=== PATIENT | female | born 1950 | race Caucasian/White ===

== ENCOUNTER 2025-09-04 09:02 | Outpatient (AMB) | payer MEDICARE, SELFPAY ==
--- NOTE | 2025-09-04 09:03 | A.PHYSOV ---
Vital Signs 09/04/25 09:19 Height 4 ft 11 in Intake Visit Reasons: MRI followup Intake Note: Patient is a 74 year old female in office today for a follow up for lumbar mri results. 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 She reports having pain every day, with a current severity of 5-6 out of 10 located in her low back. She states that most of the time the pain is in her upper back, described as a tight sensation, and is exacerbated by bending or using her upper muscles. The patient reports that the back pain can radiate to her thigh, making it difficult to walk, and at times she is unable to lift her leg. She also experiences knee problems, including cracking and difficulty with bending. Her spinal MRI revealed degenerative disc disease and arthritis at multiple levels. Her pain is managed with Tylenol Arthritis, which she finds effective. She has previously tried Celebrex without finding relief and has used Flexeril, which she found helpful. She has a history of receiving therapeutic injections in her knees, wrists, elbow, and for a trigger finger, which typically provided relief for three to six months. The patient also has a lifelong history of severe migraines and avoids opioid medications. Pain Description - Onset and Timing: The patient reports having pain every day. - Severity: Pain level is currently a 5 to 6 out of 10. - Location: The pain primarily localizes to the low back and upper back, and she also feels it along her spine, thigh, and knees. - Quality: The pain is described as a tight sensation in the upper back, similar to a blood pressure cuff, and her knees experience cracking. - Exacerbating Factors: Pain is worsened by bending, using upper body muscles, and activities like grocery shopping. - Associated Symptoms/Interference: The pain interferes with her ability to walk, bend her knees, and occasionally lift her leg. - At times, she feels that even breathing hurts. Results - Imaging: - MRI of the spine reveals multilevel degenerative disc disease and arthritis. - There is no evidence of an obvious pinched nerve or spinal cord compression. [facility] Surgical History History of tonsillectomy (Unknown) H/O: hysterectomy (Unknown) History of cholecystectomy (Unknown) History of (Unknown) Social History Household Members: Spouse Alcohol intake: current Alcohol intake frequency: does not drink Use of substances other than those prescribed or required for medical reasons: No Current occupational status: retired Review of Systems Narrative Review of Systems - Musculoskeletal: Reports chronic daily back pain, which can be in the low back or upper back. - Reports pain radiating to the thigh, causing difficulty walking. - Reports bilateral knee pain with cracking and difficulty bending. - Reports thumb pain with movement. - Neurological: Reports a lifelong history of severe migraines. - Respiratory: Reports that breathing hurts at times when her pain is severe. - Constitutional: Reports feeling groggy and non-functional after taking Flexeril. Physical Exam Exam Exam: Physical Exam - General: Patient observed to be able to stand and ambulate. - Musculoskeletal: Patient pointed to her lumbar and thoracic spine as the location of her pain. Examination of the thoracic spine, there is no visible swelling or deformity. She is tender throughout the thoracic paraspinal musculature. Her chest rises and falls symmetrically. No scapular winging. Full range of motion of her lumbar spine. She is otherwise neurovascularly intact. Assessment & Plan Assessment & Plan (1) Thoracic back pain: Code(s): M54.6 - Pain in thoracic spine Category: Medical Qualifiers: Chronicity: chronic Back pain laterality: bilateral Qualified Code(s): M54.6 - Pain in thoracic spine; G89.29 - Other chronic pain Plan Pain Management - Analgesia: The patient currently uses Tylenol Arthritis as needed for pain, which she reports as effective. - She has a history of using Flexeril with good effect. - Her current pain level is 5-6 out of 10. - Activities of Daily Living: Her pain interferes with her ability to walk, bend, lift her leg, and perform activities such as grocery shopping. - Adverse Effects: She reports that Flexeril causes grogginess and makes her feel non-functional for a couple of days. - Taking Tylenol for several consecutive days can trigger her migraines. - Aberrant Drug Related Behaviors: None noted; the patient expressed a desire to avoid opioid medications. Plan Patient was informed and verbally consented to the use of an ambient scribe for clinic note documentation during this visit. 1. Chronic Back Pain The patient's chronic back pain is secondary to multilevel degenerative disc disease and arthritis of the spine, as confirmed by MRI. Reassurance was provided that there are no acute findings requiring surgical intervention, such as significant nerve or spinal cord compression. The patient will continue to use Tylenol Arthritis as needed for pain management. A prescription for Flexeril will be sent to her pharmacy for use as needed, with counseling to take it at night due to its sedative effects. Options for future management, including spinal injections and referral for home child care provider, were discussed and deferred by the patient for now. 2. Bilateral Knee Pain The patient reports knee pain with mechanical symptoms. She has a history of successful, though temporary, relief from knee injections. An offer to perform knee injections during today's visit was declined by the patient but remains an option for future consideration. Discussion Notes I reviewed the patient's MRI of the spine with her, which showed multilevel degenerative disc disease and arthritis. I explained that because the problem affects the whole spine, targeted injections are difficult, but reassured her there were no findings like a pinched nerve or spinal cord compression that would be alarming or require surgery. We discussed several management options, including stronger medications like gabapentin or opioids, which she declined. She requested a refill of Flexeril, which has helped in the past, and I agreed to order it. I counseled her to use Flexeril as needed, preferably at night, due to potential grogginess. I also informed her that other options, such as injections for her back or knees and home child care provider, remain available if she wishes to pursue them in the future. Patient Instructions - Continue to use Tylenol Arthritis as needed for your pain. - I have sent a prescription for Flexeril for you to use as needed when the pain is more severe. - This medication can make you tired and groggy, so it is best to take it at night. - Your MRI shows you have arthritis and disc problems in your spine, but the good news is there is no pinched nerve, no damage to the spinal cord, and nothing that needs surgery. - If your pain gets worse, please let me know. We can consider other options we discussed, like injections for your knees or back, or a referral to a chiropractor. Coding Level of Care Code Tele Est Pt Level 3 (09829) Diagnoses Chronic bilateral thoracic back pain M54.6; G89.29 Chronicity: chronic Back pain laterality: bilateral
--- OUTSIDE RECORDS SUMMARY | 2025-09-04 09:49 | XMS_ITS | Patient Health Record ---
[facility] Address [address] [place] [address] Care Team Providers Care Front Desk Admin Name Role Phone Inge FARLEY, West Primary Care Provider Aguila Soliz Unavailable [phone] Allergies No Known Allergies Reason For Referral No Information Medications Medication SIG (Take, Route, Frequency, Duration) Notes Start Date End Date Status Albuterol Sulfate HFA Active Levothyroxine Sodium 75 MCG 1 tablet in the morning on an empty stomach Orally Once a day; Duration: 30 day(s) Active Losartan Potassium 50 MG 1 tablet Orally Once a day; Duration: 30 day(s) Active SUMAtriptan Succinate 25 MG 1 tablet at least 2 hours between doses as needed Orally Twice a day Active Vitamin D3 25 MCG (1000 UT) 1 tablet Ora lly Once a day; Duration: 30 day(s) Active Night Splint AFO - L1930 as directed Active Social History Tobacco Use: Social History Observation Description Date Details (start date - stop date) Never Smoker NA - NA Tobacco Use/Smoking Question Answer Notes Are you a: nonsmoker Additional Findings: Tobacco Non-User Current no n-smoker Alcohol Screen Question Answer Notes Did you have a drink containing alcohol in the p ast year? No Points 0 Interpretation Negative Tobacco use other than smoking: Question Answer Notes Are you an other tobacco user? No Problems Problem Type SNOMED Code ICD Code Onset Dates Problem Status W/U Status Risk Notes Problem Achilles bursitis (120935872) Achilles tendinitis, left leg (M76.62) Active confirmed Plan Of Treatment No Information Insurance Providers Payer Name Payer Address Payer Phone Subscriber Number Group Number Insured Name Patient Relationship to Insured Coverage Start Date Coverage End Date [employer] Open [address] [place] [address] [id number] Carmenza Mccormack Self - patient is the insured Medical (General) History Medical History History ICD Code Arthritis Headaches/Migraines High blood pressure chronic sinusitis Cataracts Measles Mumps Chicken pox Stomach ulcer thyroid Surgical History Surgery Date(Month/Year) section gall bladder partial hysterectomy tonsillectomy
--- OUTSIDE RECORDS SUMMARY | 2025-09-04 09:49 | XMS_ITS | Clinical Summary ---
Author Organization [address] [place] [address] [place] [phone] Phone Care Team Providers Care Purchaser Name Role Phone Joseline Smith NP Primary Care Provider [phone] Allergies Active Allergy Reactions Criticality Noted Date Comments Pollen Extracts Runny nose 01/26/2023 Medications SUMAtriptan (IMITREX) 25 mg tablet 1 tablet (25 mg total). 09/29/2023 Active albuterol HFA (PROAIR HFA ; PROVENTIL HFA ; VENTOLIN HFA) 90 mcg/actuation inhaler Inhale 2 puffs by mouth. 08/21/2023 Active cholecalciferol, vitamin D3, 25 mcg (1,000 unit) tablet,chewable Chew 1 tablet 1 (one) time each day. Active losartan (Cozaar) 100 mg tablet Take 1 tablet (100 mg total) by mouth 1 (one) time each day. 90 each 1 03/17/2025 Active levothyroxine (SYNTHROID, LEVOTHROID) 100 mcg tablet TAKE 1 TABLET BY MOUTH EVERY DAY 90 tablet 1 06/18/2025 Active Active Problems Problem Noted Date Diagnosed Date Achilles bursitis 03/16/2025 Dorsalgia 12/30/2022 Primary hypertension 12/30/2022 Other specified hypothyroidism 12/30/2022 Migraine without aura and wi thout status migrainosus, not intractable 12/30/2022 Encounters Date Type Department Care Team Description 08/14/2025 6:58 PM EST - 08/14/2025 11:59 PM EST Hospital Encounter [facility] MRI [address] [place] [address] Radiculopathy, thoracic region; Spondylosis, unspecified Discharge Disposition: Home or Self Care 07/22/2025 [facility] [address] [place], [place] [address] Sarah Dhaliwal [place] [phone] Joseline Smith NP 06/23/2025 [facility] [place] Dhaliwal [place] [phone] Joseline Smith NP 06/20/2025 11:56 AM EDT - 06/20/2025 11:59 PM EDT [facility] [address] [place], [place] [address] Sarah DHALIWAL [place] [phone] Chronic midline thoracic back pain Discharge Disposition: Home or Self Care 06/20/2025 11:15 AM EDT Office Visit Internal Medicine - [address] Sarah Dhaliwal [place] [phone] Joseline Smith NP Primary hypertension (Primary Dx); Other specified hypothyroidism; Migraine without aura and without status migrainosus, not intractable; Dislocation of temporomandibular joint, initial encounter; Chronic midline thoracic back pain; Neoplasm of uncertain behavior from Last 3 Months Immunizations Immunization Administration Dates Next Due Influenza trivalent, 0.5mL (Fluad) 65yo and olde r 06/27/2024 Influenza, Unspecified 06/27/2024 Tdap Tetanus diptheria acell ular pertussis (Boostrix; Adacel) 7yo and older 03/08/2024 Surgical History Surgery Date Site/Laterality Comments HYSTERECTOMY PROCEDURE: HISTORICAL HYSTERECTOMY CHOLECYSTECTOMY PROCEDURE: HISTORICAL CHOLECYSTECTOMY SECTION PROCEDURE: HISTORICAL DELIVERY TONSILLECTOMY PROCEDURE: HISTORICAL TONSILLECTOMY Medical History Medical History Date Comments Mild intermittent asthma, uncomplicated DX:Mild intermittent asthma, uncomplicated Achilles tendinitis DX:Achilles tendinitis Hypothyroidism DX:Hypothyroidis m Family History Medical History Relation Name Comments Alcohol abuse Brother x4 1` 2 are recove ring Crohn's disease Brother x4 1` Diabetes Brother x4 1` Heart attack Brother x4 1` brother who p assed, substance abuse and AIDS Other: Other Brother x4 1` heart murmur Thyroid disease Brother x4 1` Migraines Daughter x4 Alcohol abuse Father Tuberculosis Father hx Diabetes Mother Rheum arthritis Mother Stroke Mother mild stroke Thyroid disease Mother Diabetes Sister x4 Thyroid disease Sister x4 Relation Name Status Comments Brother x4 1` Alive Daughter x4 Alive Father Mother Sister x4 Alive Social History Tobacco Use Types Packs/Day Years Used Date Smoking Tobacco: Never Smokeless Tobacco: Never Alcohol Use Standard Drinks/Week Comments Not Currently 0 (1 standard drink = 0.6 oz pur e alcohol) Comments No Sex and Gender Information Value Date Recorded Sex Assigned at Not on file Legal Sex Female 4:37 AM EST Gender Identity Not on file Sexual Orientation Not on file Obstetrics History Para Term AB IAB SAB Ectopic Multiple Livin g Live Births 4 Last Filed Vital Signs Vital Sign Reading Time Taken Comments Blood Pressure 136/87 06/20/2025 11:33 AM EDT A Pulse 65 06/20/2025 11:33 AM EDT Temperature 36.7 C (98 F) 01/23/2025 2:22 PM EDT Respiratory Rate - - Oxygen Saturation 98% 01/23/2025 2:22 PM EDT Inhaled Oxygen Concentration - - Weight 74.4 kg (164 lb) 06/20/2025 11:33 AM EDT Height 149.9 cm (4' 11 ) 06/20/2025 11:33 AM EDT Body Mass Index 33.12 06/20/2025 11:33 AM EDT Plan of Treatment Health Maintenance Due Date Last Done Comments Pneumococcal Vaccine: 50+ Years (1 of 1 - PCV) 2000 Zoster Vaccines (1 of 2) 2000 Falls Risk Assessment 09/04/2022 Hepatitis C Screening 09/04/2022 Medicare Annual Wellness Visit 09/04/2022 Osteoporosis Screening (Bone Density Screening) 09/04/2022 Social Influencers of Health Screening 09/04/2022 Depression Screening 10/02/2024 COVID-19 Vaccine ( season) 2025 06/27/2024, 08/19/2021, 01/12/2021, Additional history exists Influenza Vaccine (#1) 2025 06/27/2024, 2023 RSV Immunization Adult Patients (1 - 1-dose 75+ series) 2025 Hypertension/CHF/CAD Annual BMP Blood Test 03/17/2026 03/17/2025, 07/05/2024 Breast Cancer Screening 10/25/2026 10/25/19 25, 04/08/2022, 02/08/2021, Additional history exists Cholesterol Screening (Lipid Panel) 03/29/2028 03/29/2023 Colorectal Cancer Screening: FIT-DNA (Cologuard) 07/22/2028 07/22/2025, 07/04/2025, 07/04/2025, Additional history exists DTaP,Tdap,and Td Vaccines (2 - Td or Tdap) 03/08/2034 03/08/2024 HIB Vaccines Aged Out No longer eligi ble based on patient's age to complete this topic HPV Vaccines Aged Out No longer eligi ble based on patient's age to complete this topic Hepatitis A Vaccines Aged Out No long er eligible based on patient's age to complete this topic Hepatitis B Vaccines Aged Out No long er eligible based on patient's age to complete this topic IPV Vaccines Aged Out No longer eligi ble based on patient's age to complete this topic MMR Vaccines Aged Out No longer eligi ble based on patient's age to complete this topic Meningococcal ACWY Vaccine Aged Out N o longer eligible based on patient's age to complete this topic Meningococcal B Vaccine Aged Out No l onger eligible based on patient's age to complete this topic RSV Immunization Patients Under 20 months Aged Out No longer eligible based on patient's age to complete this topic Varicella Vaccines Aged Out No longer eligible based on patient's age to complete this topic Procedures Procedure Name Priority Date/Time Associated Diagnosis Comments MR THORACIC SPINE WO CONTRAST Routine 08/14/2025 7:49 PM EST Radiculopathy, thoracic region Spondylosis, unspecified EXTERNAL COLOGUARD (FIT-DNA) REPORT 07/22/2025 XR THORACIC SPINE 2 VIEWS Routine 06/20/2025 12:03 PM EDT Chronic midline thoracic back pain BASIC METABOLIC PANEL Routine 03/17/2025 10:41 AM EDT Primary hypertension MG MAMMO DIGITAL SCREENING W ALFONSO BILAT Routine 10/25/2024 9:10 AM EST Encounter for screening mammogram for breast cancer LIPID PANEL Routine 03/29/2023 from Last 3 Months or Most Recently Relevant to Health Maintenance Results * MR Thoracic Spine wo Contrast (08/14/2025 7:49 PM EST) Anatomical Region Laterality Modality T-spine, Spine Magnetic Resonan ce 08/18/2025 1:50 PM EST Impressions 08/18/2025 2:21 PM EST Mild degenerative changes throughout the thoracic spine without high-grade foraminal or spinal canal stenosis. No mass effect upon the cord or cord signal abnormality. -------- FINAL REPORT -------- Dictated By: HOMA CALI Dictated Date: 08/18/2025 13:50 ET Assigned Physician: HOMA CALI Reviewed and Electronically Signed By: HOMA CALI Signed Date: 08/18/2025 14:21 ET Workstation ID: [id number] Transcribed By: Self Edit Transcribed Date: 08/18/2025 13:50 ET Narrative 08/18/2025 2:21 PM EST PROCEDURE: Thoracic spine MRI INDICATION: Pain TECHNIQUE: Multiplanar, multisequence MRI of the thoracic spine Without contrast. COMPARISON: No priors available. FINDINGS: Thoracic kyphosis is maintained. No fracture or suspicious marrow replacing lesion. Degenerative loss of normal disc height and signal with associated degenerative endplate spurring seen throughout the thoracic spine. Small diffuse disc bulges are seen at several levels. No significant focal disc protrusion. Lower thoracic predominant degenerative facet arthritis, most pronounced at T11- 12. No high-grade foraminal stenosis in the thoracic spine. The thoracic cord is normal in signal and morphology. There is mild spinal canal stenosis at T11-12 related to degenerative facet arthropathy, ligamentum flavum thickening, and diffuse disc bulge. Paraspinal muscles are normal. Right hepatic cyst. The visualized intrathoracic and upper abdominal structures are otherwise unremarkable. Procedure Note Homa Cali MD - 08/18/2025 PROCEDURE: Thoracic spine MRI INDICATION: Pain TECHNIQUE: Multiplanar, multisequence MRI of the thoracic spine Withoutcontrast. COMPARISON: No priors available. FINDINGS: Thoracic kyphosis is maintained. No fracture or suspicious marrow replacing lesion. Degenerative loss of normal disc height and signal with associateddegenerative endplate spurring seen throughout the thoracic spine. Smalldiffuse disc bulges are seen at several levels. No significant focal discprotrusion. Lower thoracic predominant degenerative facet arthritis, most pronouncedat T11- 12. No high-grade foraminal stenosis in the thoracic spine. The thoracic cord is normal in signal and morphology. There is mildspinal canal stenosis at T11-12 related to degenerative facet arthropathy,ligamentum flavum thickening, and diffuse disc bulge. Paraspinal muscles are normal. Right hepatic cyst. The visualizedintrathoracic and upper abdominal structures are otherwise unremarkable. IMPRESSION: Mild degenerative changes throughout the thoracic spine without high- gradeforaminal or spinal canal stenosis. No mass effect upon the cord or cordsignal abnormality. -------- FINAL REPORT -------- Dictated By: HOMA CALI Dictated Date: 08/18/2025 13:50 ET Assigned Physician: HOMA CALI Reviewed and Electronically Signed By: HOMA CALI Signed Date: 08/18/2025 14:21 ET Workstation ID: [id number] Transcribed By: Self Edit Transcribed Date: 08/18/2025 13:50 ET Leandro BARRERA IMG MRI PROCEDURES Final Resul t * External Cologuard (FIT-DNA) Report (07/22/2025) Provider [facility] BODY FLUIDS AND STOO LS ORDERABLES Final Result * XR Thoracic Spine 2 Views (06/20/2025 12:03 PM EDT) Anatomical Region Laterality Modality Spine, T-spine Radiographic Agnieszka ging 06/22/2025 3:29 AM EDT Narrative 06/22/2025 3:29 AM EDT Thoracic spine, 2 views. History pain. Vertebral bodies are maintained in height. There is narrowing of the disc spaces subchondral sclerosis and marginal osteophytes at multiple levels in the mid and lower thoracic segment. No fractures, dislocations or destructive lesions. CONCLUSIONS: Multilevel bony and discs degenerative changes. -------- FINAL REPORT -------- Dictated By: Tamera Workman Dictated Date: 06/22/2025 03:29 ET Assigned Physician: Tamera Workman Reviewed and Electronically Signed By: Tamera Workman Signed Date: 06/22/2025 03:29 ET Workstation ID: [id number] Transcribed By: Self Edit Transcribed Date: 06/22/2025 03:29 ET Procedure Note Tamera Workman MD - 06/22/2025 Thoracic spine, 2 views. History pain. Vertebral bodies are maintained in height. There is narrowing of the discspaces subchondral sclerosis and marginal osteophytes at multiple levelsin the mid and lower thoracic segment. No fractures, dislocations ordestructive lesions. CONCLUSIONS: Multilevel bony and discs degenerative changes. -------- FINAL REPORT -------- Dictated By: Tamera Workman Dictated Date: 06/22/2025 03:29 ET Assigned Physician: Tamera Workman Reviewed and Electronically Signed By: Tamera Workman Signed Date: 06/22/2025 03:29 ET Workstation ID: [id number] Transcribed By: Self Edit Transcribed Date: 06/22/2025 03:29 ET Joseline Smith NP IMG XR PROCEDURES Final Result * (ABNORMAL) Basic metabolic panel (03/17/2025 10:41 AM EDT) Sodium 143 133 - 145 mmol/L LAB CHEMISTRY METHOD 03/17/2025 3:51 PM EDT [facility] Potassium 4.3 3.5 - 5.5 mmol/L LAB CHEMISTRY METHOD 03/17/2025 3:51 PM EDT [facility] Chloride 113(H) 96 - 110 mmol/L LAB CHEMISTRY METHOD 03/17/2025 3:51 PM EDT [facility] CO2 24 21 - 32 mmol/L LAB CHEMISTRY METHOD 03/17/2025 3:51 PM EDT [facility] Anion Gap 6 3 - 11 LAB CHEMISTRY METHOD 03/17/2025 3:51 PM EDT [facility] Glucose 88 70 - 100 mg/dL LAB CHEMISTRY METHOD 03/17/2025 3:51 PM T [facility] BUN 15 5 - 25 mg/dL LAB CHEMISTRY METHOD 03/17/2025 3:51 PM EDT [facility] Creatinine 0.80 0.50 - 1.10 mg/dL LAB CHEMISTRY METHOD 03/17/2025 3:51 PM EDT [facility] eGFR 77 >=60 mL/min/1. 73m2 LAB CHEMISTRY METHOD 03/17/2025 3:51 PM T [facility] Comment:Calculation based on the Chronic Kidney Disease Epidemiology Collaboration (CKD-EPI) equation refit without adjustment for race. BUN/Creatinine Ratio 18.8 LAB CHEMISTRY METHOD 03/17/2025 3:51 PM T [facility] Calcium 8.9 8.5 - 10.5 mg/dL LAB CHEMISTRY METHOD 03/17/2025 3:51 PM [facility] Blood Venous blood specimen / Unknown Venipuncture / Unknown 03/17/2025 10:41 AM EDT 03/17/2025 10:41 AM EDT us Joseline Smith NP LAB BLOOD ORDERABLES Final Resu lt [facility] [address] [place] [address], [place] [phone] * MG Mammo Digital Screening w Alfonso bilat (10/25/2024 9:10 AM EST) Anatomical Region Laterality Modality Breast Bilateral Mammography 10/25/2024 9:13 AM EST Impressions 10/25/2024 9:18 AM EST No mammographic evidence of malignancy. A negative mammogram in the presence of a clinically suspicious palpable abnormality does not preclude the possibility of malignancy or alter the indications for biopsy. PQRI CPT II 3342F Code 29713, 71045 PQRI 225 CPT II 7025F TISSUE DENSITY: The breasts are almost entirely fatty. (BI-RADS Category A) IMPRESSION: Benign. BI-RADS CATEGORY: 2 - BENIGN RECOMMENDATION: Screening bilateral mammogram is recommended in 1 year. Mammo Location: [facility], [address] [place] [id number] -------- FINAL REPORT -------- Dictated By: Khalif Mirza Dictated Date: 10/25/2024 09:13 ET Assigned Physician: Khalif Mirza Reviewed and Electronically Signed By: Khalif Mirza Signed Date: 10/25/2024 09:18 ET Workstation ID: [id number] Transcribed By: Self Edit Transcribed Date: 10/25/2024 09:13 ET Narrative 10/25/2024 9:18 AM EST CLINICAL: The patient is a 74 years Female presenting for routine screening mammography. COMPARISON: Most recently 04/08/2022 and most remotely 10/27/2016. TECHNIQUE: Full-field digital mammography of the breasts bilaterally consisting of tomosynthesis in MLO and CC projection is performed in the GeoGRAFI 2000-D unit. Computer aided detection utilizing the IKOTECHD system was utilized. FINDINGS: The breasts are again seen to be largely fatty replaced. A 12 mm nodule at the 6:00 position of the right breast is stable over many years and is therefore again regarded as being benign. There is no suspicious cluster of microcalcifications, suspicious mass, or area of architectural distortion. There is no skin thickening or nipple retraction. Procedure Note Khalif Mirza MD - 10/25/2024 CLINICAL: The patient is a 74 years Female presenting for routinescreening mammography. COMPARISON: Most recently 04/08/2022 and most remotely 10/27/2016. TECHNIQUE: Full-field digital mammography of the breasts bilaterallyconsisting of tomosynthesis in MLO and CC projection is performed in theGeoGRAFI 2000-D unit. Computer aided detection utilizing the iCADsystem was utilized. FINDINGS: The breasts are again seen to be largely fatty replaced. A 12mm nodule at the 6:00 position of the right breast is stable over manyyears and is therefore again regarded as being benign. There is nosuspicious cluster of microcalcifications, suspicious mass, or area ofarchitectural distortion. There is no skin thickening or nippleretraction. IMPRESSION: No mammographic evidence of malignancy. A negative mammogram in the presence of a clinically suspicious palpableabnormality does not preclude the possibility of malignancy or alter theindications for biopsy. PQRI CPT II 3342F Code 94328, 04295 PQRI 225 CPT II 7025F TISSUE DENSITY: The breasts are almost entirely fatty. (BI-RADS CategoryA) IMPRESSION: Benign. BI-RADS CATEGORY: 2 - BENIGN RECOMMENDATION: Screening bilateral mammogram is recommended in 1 year. Mammo Location: [facility], [address] [place] [address] -------- FINAL REPORT -------- Dictated By: Khalif Mirza Dictated Date: 10/25/2024 09:13 ET Assigned Physician: Khalif Mirza Reviewed and Electronically Signed By: Khalif Mirza Signed Date: 10/25/2024 09:18 ET Workstation ID: [id number] Transcribed By: Self Edit Transcribed Date: 10/25/2024 09:13 ET us Self Referral Sppl IMG BI PROCEDURES Final Resul t * Lipid panel (03/29/2023) LDL/HDL Ratio 3 Triglycerides 120 mg/dL Cholesterol 142 mg/dL HDL 49 mg/dL LDL Cholesterol 69 mg/dL Blood Venous blood specimen / Unknown us Historical Provider LAB BLOOD ORDERABLES Nathaly moore Result from Last 3 Months or Most Recently Relevant to Health Maintenance Insurance [employer] MED[employer]ARE [employer]VANTAGE Care Teams Purchaser Relationship Specialty Start Date End Date Joseline Smith NP [address] [place], [place] [address] [address] PCP - General 10/21/22
--- OUTSIDE RECORDS SUMMARY | 2025-09-04 09:49 | XMS_ITS | Encounter Summary ---
Author Organization [facility] Address [address] [place] [address] Care Team Providers Care Manager Stars Name Role Phone Joseline Smith NP Primary Care Provider [phone] Encounter Details Date Type Department Care Team ([facility] st Contact Info) Description 07/22/2025 Results Follow-Up Internal Medicine - [facility] [address] [place] [address] Joseline Smith NP [address] [place] [address] Social History Tobacco Use Types Packs/Day Years Used Date Smoking Tobacco: Never Smokeless Tobacco: Never Alcohol Use Standard Drinks/Week Comments Not Currently 0 (1 standard drink = 0.6 oz pur e alcohol) Comments No Sex and Gender Information Value Date Recorded Sex Assigned at Not on file Legal Sex Female 4:37 AM EST Gender Identity Not on file Sexual Orientation Not on file documented as of this encounter Plan of Treatment Not on file documented as of this encounter Visit Diagnoses Not on filedocumented in this encounter Care Teams Manager Stars Relationship Specialty Start Date End Date Joseline Smith NP [address] [place] [address] PCP - General 10/21/22 documented as of this encounter
== END 2025-09-04 09:35 | disposition home or self-care (01) ==
LOC: HO.HPHYS 09:03
PROVIDERS: PCP Nurse Practitioner Primary Care; Visit Provider Physician Assistant
DX: M54.6 Pain in thoracic spine (principal); G89.29 Other chronic pain
CPT/HCPCS: 99213

== ENCOUNTER → 2025-09-04 09:02 | Outpatient (BNVA) | payer MEDICARE, SELFPAY | PROVIDERS: PCP Nurse Practitioner Primary Care; Visit Provider Physician Assistant | DX: M54.6 Pain in thoracic spine (principal); G89.29 Other chronic pain | CPT/HCPCS: 99212 ==